=== PATIENT | female | born 1945 | race Caucasian/White ===

== ENCOUNTER → 2016-09-26 | Outpatient (CLI) | payer OTHER ==
[2016-09-26 12:52] LABS: BASOPHILS # (AUTO) 0.08 10*3/UL; BASOPHILS % (AUTO) 0.9 % (0-1); EOSINOPHILS # (AUTO) 0.26 10*3/UL; EOSINOPHILS % (AUTO) 2.9 % (0-8); HEMATOCRIT 42.5 % (37.0-47.0); HEMOGLOBIN 14.8 g/dL (12.0-16.0); LYMPHOCYTES # (AUTO) 1.83 10*3/uL; MEAN CORPUSCULAR HEMOGLOBIN 29.6 PG (27-31); MEAN CORPUSCULAR HGB CONC 34.8 g/dL (33-37); MONOCYTES # (AUTO) 0.71 10*3/UL (0.3-0.8); MONOCYTES % (AUTO) 7.8 % (5-15); NEUTROPHILS # (AUTO) 6.12 10*3/UL; NEUTROPHILS % (AUTO) 67.6 % (50-80)
[2016-09-26 12:53] LABS: PLATELET MORPHOLOGY COMMENT NORMAL MORPHOLOGY (NORM); RBC MORPHOLOGY COMMENT NORMAL MORPHOLOGY (NORM); WBC MORPHOLOGY COMMENT NORMAL MORPHOLOGY (NORM)
[2016-09-26 13:09] LABS: BLOOD UREA NITROGEN 10 mg/dL (7-22); BUN/CREATININE RATIO 14.28 (6-20); CALCIUM 9.2 mg/dL (8.7-10.7); CHOL/HDL RATIO 2.82 RATIO (0-4.0); EST GLOMERULAR FILTRATION > 60 (>60 ml/min/1.73m(2)); HDL CHOLESTEROL 45 mg/dL (40-150); SERUM ALBUMIN 3.8 g/dL (3.5-4.8); SERUM CHOLESTEROL 127 mg/dL (120-200)
[2016-09-26 13:12] LABS: HEMOGLOBIN A1C 5.82 % (4.2-6.0)
== END ==
LOC: LAB 09:30
PROVIDERS: ATTEND Nurse Practitioner Family
DX: E03.9 Hypothyroidism, unspecified (principal); I10 Essential (primary) hypertension; E66.9 Obesity, unspecified; K21.9 Gastro-esophageal reflux disease without esophagitis; Z79.899 Other long term (current) drug therapy
CPT/HCPCS: 80053; 80061; 83036; 84443; 85025

== ENCOUNTER → 2016-12-25 | Outpatient (CLI) | payer OTHER | LOC: MMPC 11:11 | PROVIDERS: ATTEND Surgery | DX: K21.9 Gastro-esophageal reflux disease without esophagitis (principal) | CPT/HCPCS: 99202; G0463 ==

== ENCOUNTER 2017-01-07 07:22 | Day surgery (SDC) | payer OTHER ==
[~2017-01-07 07:22] MED LIST: LIDOCAINE 2% VISCOUS(20 MG/1 ML) - 15 ML UD CUP PO ONE; LIDOCAINE W/ SODIUM BICARB 0.5 ML SYR ONE; Lactated Ringers 1,000 ML PRIMARY IV ONE; fentaNYL Inj 100 MCG/2 ML VIAL ONE
--- NOTE | 2017-01-07 08:51 | GEN.OPNOTE ---
EGD / Colonoscopy Report Surgery Date: 01/07/17 Preoperative Diagnosis: GERD. Colon cancer screening. Postoperative Diagnosis: GERD. Hiatal hernia. Esophagitis. Colon cancer screening. Procedure: #1 esophagogastroduodenoscopy with biopsy. #2 complete colonoscopy. Surgeon: Eb Watts MD Anesthesia Provider: Isaac Chandler CRNA Anesthesia Type: MAC Indications: See preoperative diagnosis. Patient is taking antacids at least twice a week. Her last colonoscopy was in 2003 so she is due for follow-up. EGD Findings: Esophagus: [Normal] GE Junction : [Severe esophagitis with ulcerations and friability. Hiatal hernia, moderate to large.] Fundus : [Normal] Body : [Normal] Prepyloric : [Mild erythema] Small Intestine : [Normal] A lubricated flexible upper endoscope was inserted and passed through the esophagus and stomach into the duodenum. The duodenum and duodenal bulb were unremarkable. The pyloric channel was patent. There was some mild friability and erythema in the antrum. Multiple biopsies were taken. Hemostasis was assured. The scope was retroflexed. There was a moderate to large hiatal hernia. The scope was straightened. Air was aspirated. The scope was withdrawn into the distal esophagus. There was moderate to severe erosive esophagitis. Multiple biopsies were taken. Hemostasis was assured. The scope was withdrawn through the remainder of a normal-appearing esophagus and brought through the hypopharynx under suction completing that portion of the procedure. Colonoscopy Findings: Prep : [Fair with some retained liquid green stool.] Cecum : [Normal] Ascending : [Normal] Transverse : [Normal] Sigmoid : [Normal] Rectum : [Normal] Digital Rectal Exam : [No significant perianal pathology.] A lubricated flexible colonoscope was inserted and passed to the blind end of the cecum. The napaimute's foot and appendiceal orifice and ileocecal valve were seen. Air was aspirated as the scope was withdrawn. I clears which the liquid green stool as possible. A tiny polyp could've been missed but nothing of significance. The colonoscopy was normal without polyps, tumors, neoplastic masses, infectious or inflammatory processes identified. There were a few scattered sigmoid diverticuli. The scope was withdrawn completing the procedure. The patient tolerated the procedure well without complication. She was taken to outpatient surgery in stable condition. Follow-up will be in my office in approximately 3 weeks. We'll start patient on pantoprazole 40 mg by mouth daily and see how her reflux responds. We will call the biopsy results when available. It is recommended she undergo follow- up colonoscopy in 10 years time.
[2017-01-07 11:15] VITALS: TEMP 97.3
[2017-01-07 11:18] VITALS: RESP 20
== END 2017-01-07 09:19 | disposition home or self-care (01) ==
LOC: SDSC 07:22
PROVIDERS: ATTEND Surgery
DX: K21.9 Gastro-esophageal reflux disease without esophagitis (principal); Z12.11 Encounter for screening for malignant neoplasm of colon; K44.9 Diaphragmatic hernia without obstruction or gangrene; K20.9 Esophagitis, unspecified
CPT/HCPCS: 43239; 45378; J2704; J3010; J7120